=== PATIENT | male | born 1995 | race Hispanic/Latino ===

== ENCOUNTER 2020-03-31 20:23 | Emergency (ER) | payer OTHER ==
--- NOTE | 2020-04-01 00:18 | ER ---
Nurse's Notes [facility] Name: Saleem Fischer Age: 24 yrs Sex: Male : 1995 Arrival Date: 03/31/2020 Time: 20:27 Bed 15 Private MD: Diagnosis: Cough Presentation: 03/31 20:38 Chief complaint: Patient states: Dry cough started Sunday, fever on Sunday. Htemp ca1 101.9 Reports fatigue since yesterday. Took Motrin 1hr [employer]. Coronavirus screen: Surgical mask placed on patient. Patient moved to private room, placed in contact and droplet isolation with eye protection until further assessment. Patient reports a cough. Patient denies shortness of breath or difficulty breathing. Patient reports a measured and/or subjective temperature greater than 100.4F. Patient denies travel on a cruise ship or to a country the [facility] currently lists as an affected area. Patient denies contact with known and/or suspected case of COVID-19. Ebola Screen: Patient negative for fever greater than or equal to 101.5 degrees Fahrenheit, and additional compatible Ebola Virus Disease symptoms Patient denies exposure to infectious person. Patient denies travel to an Ebola-affected area in the 21 days before illness onset. No symptoms or risks identified at this time. Initial Sepsis Screen: Does the patient meet any 2 criteria? No. Patient's initial sepsis screen is negative. Does the patient have a suspected source of infection? No. Patient's initial sepsis screen is negative. Risk Assessment: Do you want to hurt yourself or someone else? Patient reports no desire to harm self or others. Onset of symptoms was March 31, 2020. 20:38 Method Of Arrival: Ambulatory ca1 20:38 Acuity: STEPHANIE 3 ca1 Triage Assessment: 23:50 General: Appears in no apparent distress. comfortable, Behavior is calm, cooperative. ls4 Pain: Denies pain. Neuro: No deficits noted. Cardiovascular: No deficits noted. Respiratory: No deficits noted. Respiratory effort is even, unlabored, Respiratory pattern is regular, Breath sounds are clear bilaterally. the patient reports symptoms have resolved. Historical: - Allergies: 20:42 No Known Allergies; ca1 - Home Meds: 20:42 phentermine oral oral [Active]; ca1 - PMHx: 20:42 None; ca1 - PSHx: 20:42 None; ca1 - Immunization history:: Adult Immunizations up to date. - Social history:: Smoking status: Reported history of juuling and/or vaping. Screenin:53 Abuse screen: Denies threats or abuse. Denies injuries from another. Nutritional ls4 screening: No deficits noted. Tuberculosis screening: No symptoms or risk factors identified. Fall Risk None identified. Assessment: 22:51 General: Appears in no apparent distress. comfortable. Pain: Denies pain. Neuro: No ls4 deficits noted. Level of Consciousness is awake, alert, obeys commands, Oriented to person, place, time. Cardiovascular: Denies chest pain, diaphoresis, lightheadedness, nausea, palpitations, shortness of breath, syncope, vomiting, Capillary refill < 3 seconds Patient's skin is warm and dry. Rhythm is regular. Respiratory: Airway is patent Respiratory effort is even, unlabored, Respiratory pattern is regular, Breath sounds are clear bilaterally. the patient reports symptoms have resolved. GI: No deficits noted. No signs and/or symptoms were reported involving the gastrointestinal system. Abdomen is non-distended, Bowel sounds present X 4 quads. Derm: Skin is pink, warm \T\ dry. Musculoskeletal: Circulation, motion, and sensation intact. Capillary refill < 3 seconds, Range of motion: intact in all extremities, Swelling absent. 23:22 Reassessment: Patient appears in no apparent distress at this time. Patient and/or ls4 family updated on plan of care and expected duration. Pain level reassessed. Patient is alert, oriented x 3, equal unlabored respirations, skin warm/dry/pink. PT STATES THAT HE IS A [employer] [employer] AND IS AFRAID TO GET COVID. PT HAS NO COUGH, SKIN WARM DRY PINK, RESPIRATIONS ARE REGULAR EVEN AND UNLABORED. Respiratory: Denies cough, shortness of breath labored breathing, pain with respiration, pain with cough, pain with movement, air hunger, PT STATES THAT HE COUGHED A FEW TIMES IN THE LAST FEW DAYS AND IS WORRIED HE HAS COVID. 04/01 12:39 Reassessment: LISA [id number] provided by [facility]. aa5 Vital Signs: 03/31 20:38 BP 139 / 94; Pulse 107; Resp 18 S; Temp 98.6(O); Pulse Ox 98% on R/A; Weight 79.83 kg ca1 (R); Height 5 ft. 3 in. (160.02 cm) (R); 23:30 BP 122 / 88; Pulse 76; Resp 16; Temp 98.4(O); Pulse Ox 99% on R/A; Pain 0/10; ls4 04/01 00:32 BP 129 / 87; Pulse 78; Resp 16; Pulse Ox 99% on R/A; Pain 0/10; ls4 03/31 20:38 Body Mass Index 31.18 (79.83 kg, 160.02 cm) ca1 ED Course: 03/31 20:27 Patient arrived in ED. cl3 20:40 Triage completed. ca1 20:42 Arm band placed on right wrist. ca1 22:25 Keli Gutierrez, RN is Primary Nurse. ls4 22:29 Cole España PA is PHCP. cp 22:29 Cole Hastings MD is Attending Physician. cp 22:54 Patient has correct armband on for positive identification. Bed in low position. Call ls4 light in reach. Side rails up X 1. Pulse ox on. NIBP on. Verbal reassurance given. 22:54 No provider procedures requiring assistance completed. Patient maintains SpO2 ls4 saturation greater than 95% on room air. 04/01 00:31 Throat Culture Sent. ls4 00:33 Patient did not have IV access during this emergency room visit. ls4 Administered Medications: No medications were administered Outcome: 00:18 Discharge ordered by . cp 00:32 Discharged to home ambulatory. ls4 00:32 Condition: good 00:32 Discharge instructions given to patient, Instructed on discharge instructions, follow up and referral plans. medication usage, Demonstrated understanding of instructions, follow-up care, medications, Prescriptions given X 1. 00:33 Patient left the ED. ls4 Addendum: 04/02/2020 17:17 Addendum: Other Pt notified of positive COVID results via telephone. h b Signatures: Nelia Fragoso, RN RN aa5 Cole España PA PA cp Baxter, Heather, RN RN hb Keli Gutierrez RN RN ls4 Antonia Oliver RN RN ca1 Sheree Matthews cl3
--- NOTE | 2020-04-01 00:19 | EDPHYS ---
Physician Documentation [facility] Name: Saleem Fischer Age: 24 yrs Sex: Male : 1995 Arrival Date: 03/31/2020 Time: 20:27 Bed 15 Private MD: ED Physician Cole Hastings HPI: 03/31 22:55 This 24 yrs old Male presents to ER via Ambulatory with complaints of Fever. cp 22:55 The patient reports fever, that was measured at 101.9 degrees Fahrenheit. cp 22:55 Onset: The symptoms/episode began/occurred 2 day(s) ago. cp 22:55 Associated signs and symptoms: Pertinent positives: cough, that is dry, sore throat, cp Pertinent negatives: diarrhea, runny nose, skin rash, shortness of breath, vomiting. Severity of symptoms: in the emergency department the symptoms have improved mildly. Historical: - Allergies: 20:42 No Known Allergies; ca1 - Home Meds: 20:42 phentermine oral oral [Active]; ca1 - PMHx: 20:42 None; ca1 - PSHx: 20:42 None; ca1 - Immunization history:: Adult Immunizations up to date. - Social history:: Smoking status: Reported history of juuling and/or vaping. ROS: 23:00 Constitutional: Negative for body aches, chills, fever, poor PO intake. cp 23:00 Eyes: Negative for injury, pain, redness, and discharge. cp 23:00 ENT: Positive for sore throat, Negative for drainage from ear(s), ear pain, difficulty swallowing, difficulty handling secretions. 23:00 Cardiovascular: Negative for chest pain. 23:00 Respiratory: Positive for cough, Negative for shortness of breath, wheezing. 23:00 Abdomen/GI: Negative for abdominal pain, nausea, vomiting, and diarrhea. 23:00 Skin: Negative for rash. 23:00 Neuro: Negative for headache. 23:00 All other systems are negative. Exam: 23:05 Constitutional: The patient appears in no acute distress, alert, awake, non-toxic, well cp developed, well nourished. 23:05 Head/Face: Normocephalic, atraumatic. cp 23:05 Eyes: Periorbital structures: appear normal, Conjunctiva: normal, no exudate, no injection, Lids and lashes: appear normal, bilaterally. 23:05 ENT: External ear(s): are unremarkable, Ear canal(s): are normal, clear, TM's: bulging, is not appreciated, bilaterally, dullness, bilaterally, erythema, is not appreciated, bilaterally, Nose: is normal, Mouth: Lips: moist, Oral mucosa: moist, Posterior pharynx: Airway: no evidence of obstruction, patent, Tonsils: are normal in appearance, erythema, is not appreciated, exudate, is not appreciated. 23:05 Neck: ROM/movement: is normal, is supple, no meningismus, no nuchal rigidity, Lymph nodes: no appreciated lymphadenopathy. 23:05 Chest/axilla: Inspection: normal, Palpation: is normal, no crepitus, no tenderness. 23:05 Cardiovascular: Rate: tachycardic, Rhythm: regular. 23:05 Respiratory: the patient does not display signs of respiratory distress, Respirations: normal, no use of accessory muscles, no retractions, labored breathing, is not present, Breath sounds: are clear throughout, no decreased breath sounds, no stridor, no wheezing. 23:05 Abdomen/GI: Exam negative for discomfort, distension, guarding, Inspection: abdomen appears normal. 23:05 Skin: no rash present. Vital Signs: 20:38 BP 139 / 94; Pulse 107; Resp 18 S; Temp 98.6(O); Pulse Ox 98% on R/A; Weight 79.83 kg ca1 (R); Height 5 ft. 3 in. (160.02 cm) (R); 23:30 BP 122 / 88; Pulse 76; Resp 16; Temp 98.4(O); Pulse Ox 99% on R/A; Pain 0/10; ls4 04/01 00:32 BP 129 / 87; Pulse 78; Resp 16; Pulse Ox 99% on R/A; Pain 0/10; ls4 03/31 20:38 Body Mass Index 31.18 (79.83 kg, 160.02 cm) ca1 MDM: 03/31 22:29 Patient medically screened. cp 04/01 00:17 Data reviewed: vital signs, nurses notes, lab test result(s), and as a result, I will cp discharge patient. 00:17 Differential diagnosis: viral Infection, bacterial infection, bronchitis, pneumonia cp meningitis. Counseling: I had a detailed discussion with the patient and/or guardian regarding: the historical points, exam findings, and any diagnostic results supporting the discharge/admit diagnosis, lab results, to return to the emergency department if symptoms worsen or persist or if there are any questions or concerns that arise at home. ED course: VSS. Patient appears non-toxic and no signs of respiratory distress. Will discharge to home for continued monitoring and patient instructed to self quarantine while awaiting results of COVID-19 testing. 03/31 22:53 Order name: COVID-19; Complete Time: 17:09 cp 03/31 22:53 Order name: Flu; Complete Time: 00:16 cp 04/01 00:16 Interpretation: Reviewed. cp 03/31 22:53 Order name: Strep; Complete Time: 00:16 cp 04/01 00:17 Interpretation: Reviewed. 03/31 22:53 Order name: Document PUI#; Complete Time: 23:22 cp 03/31 22:53 Order name: Droplet/Contact Precautions; Complete Time: 23:22 cp 04/01 00:17 Order name: Throat Culture EDW[facility] 03/31 22:53 Order name: Labs collected and sent; Complete Time: 23:22 cp 03/31 22:53 Order name: Notify Health Dept [phone]/ ; Complete Time: 12:19 cp 03/31 22:53 Order name: O2 Per Protocol; Complete Time: 23:22 cp Administered Medications: No medications were administered Disposition: 09:03 Co-signature as Attending Physician, Cole Hastings MD I agree with the assessment and sidney plan of care. Disposition: 04/01/20 00:18 Discharged to Home. Impression: Cough. - Condition is Stable. - Discharge Instructions: Cough, Adult. - Prescriptions for Tessalon Perles 100 mg Oral Capsule - take 1 capsule by ORAL route every 8 hours As needed; 15 capsule. - Medication Reconciliation Form, Thank You Letter, Antibiotic Education, Prescription Opioid Use form. - Follow up: Private Physician; When: 1 - 2 days; Reason: Worsening of condition. - Problem is new. - Symptoms have improved. - Notes: Self quarantine with family until results for COVID-19 are known. May take over the counter cough medicine Addendum: 04/02/2020 17:19 Addendum: Called patient, notified of + COVID-19 test \T\ 1719. . rn Signatures: Dispatcher [employer] Cole Petit MD MD cha Nieto, Roman, MD MD rn Page, Corey, Keli Stafford cp, RN RN ls4 Antonia Oliver RN RN ca1 Corrections: (The following items were deleted from the chart) 04/01 00:33 00:18 04/01/2020 00:18 Discharged to Home. Impression: Cough. Condition is Stable. ls4 Forms are Medication Reconciliation Form, Thank You Letter, Antibiotic Education, Prescription Opioid Use. Follow up: Private Physician; When: 1 - 2 days; Reason: Worsening of condition. Problem is new. Symptoms have improved. cp
[2020-04-01 00:50] VITALS: TEMP 98.4; O2SAT 99
[2020-04-01 00:52] VITALS: BP 129/87
== END 2020-04-01 00:33 | disposition home or self-care (01) ==
LOC: ER 20:23
DX: U07.1 COVID-19 (principal); R05 Cough
CPT/HCPCS: 87070; 87081; 87804 ×2; 99284; U0002; U0001

== ENCOUNTER 2021-06-03 09:12 | Emergency (ER) | payer OTHER ==
--- OUTSIDE RECORDS SUMMARY | 2021-06-03 09:15 | XMS REPORT | Continuity of Care Document ---
:1995 Author Organization [facility] t Address [address] [place] [address] Care Team Providers Name Role Phone Cooper RN, Mary Almanza Attending Clinician Unavailable Hector RN, A Attending Clinician Unavailable Only, Test Attending Clinician Unavailable Doctor Unassigned, Name Attending Clinician Unavailable Problems This patient has no known problems. Allergies, Adverse Reactions, Alerts This patient has no known allergies or adverse reactions. Medications This patient has no known medications. Procedures This patient has no known procedures. Encounters Start End Encounter Admission Attending Care Care Encounter Source Date/Time Date/Time Type Type Clinicians Facility Department ID 2020-04-25 2020-04-25 Telephone SAEID Gamboa [id number] 00:00:00 00:00:00 Mary RAMÍREZ [id number] [facility] [id number] 2020-04-16 2020-04-16 Telephone SAEID [id number] 00:00:00 00:00:00 Janene RAMÍREZ [id number] [facility] [id number] 2020-04-16 2020-04-16 Letter SAEID Young [id number] 00:00:00 00:00:00 (Out) Janene RAMÍREZ [id number] [facility] [id number] 2020-04-15 2020-04-15 Laboratory Only, [facility] [id number] 11:49:30 12:04:30 Only Test [place] [id number] [place] [id number] [place] [id number] 2020-04-15 2020-04-15 Orders Doctor SAEID [id number] 00:00:00 00:00:00 Only Unassigned, DESIREE [id number] [place] [id number] Results This patient has no known results.
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
--- NOTE | 2021-06-03 10:09 | RAD REPORT ---
EXAM DESCRIPTION: RAD - Wrist Left 3 View - 06/03/2021 10:01 am CLINICAL HISTORY: Left wrist pain status post injury FINDINGS: No fracture or dislocation is seen. If the patient continues to have symptoms to suggest an occult fracture then a followup plain film se mohsen in 7 days would be recommended
[2021-06-03 10:30] VITALS: BP 149/86; TEMP 98; O2SAT 98
[2021-06-03] MEDS ORDERED: ACETAMINOPHEN 325 MG TABLET ONE (10:33)
== END 2021-06-03 10:13 | disposition home or self-care (01) ==
LOC: ER 09:12
DX: S60.212A Contusion of left wrist, initial encounter (principal); V59.40XA Driver of pick-up truck or van injured in collision with unspecified motor vehicles in traffic accident, initial encounter
CPT/HCPCS: 99283

== ENCOUNTER 2022-12-26 11:50 | Emergency (ER) | payer OTHER ==
--- OUTSIDE RECORDS SUMMARY | 2022-12-26 11:53 | XMS REPORT | Continuity of Care Document ---
:1995 Author Organization [facility] t Address [address] [place] [address] Care Team Providers Name Role Phone UMU STEIN Primary Care Physician Unavailable RADIOLOGY Attending Clinician Unavailable Radiology Attending Clinician Unavailable Doctor Unassigned, [place] Attending Clinician Unavailable TY KENDRICK Attending Clinician Unavailable Cooper GREENWOOD, Mary Almanza Attending Clinician Unavailable Hector GREENWOOD, Janene Patterson Attending Clinician Unavailable Only, Adc Test Attending Clinician Unavailable Talya OSHEA, Yuri Attending Clinician UMU STEIN Admitting Clinician Unavailable Payers Payer Name Policy Type Policy Number Effective Date Expiration Date S amber [employer] [id number] 2020 00:00:00 [facility] [id number] 2012 2020 [facility] [employer] 00:00:00 00:00:00 Problems This patient has no known problems. Allergies, Adverse Reactions, Alerts Allergy Allergy Status Severity Reaction(s) Onset Inactive Treating Comm ents Source Name Type Date Date Clinician NO KNOWN Drug Active Univers ALLERGIE Class ity of S [facility] Social History Social Habit Start Date Stop Date Quantity Comments Source Exposure to Yes [facility] SARS-CoV-2 (event) Medica l Branch Sex Assigned At [birth year] [facility] 00:00:00 00:00:[address] [facility] Smoking Status Start Date Stop Date Source Unknown if ever smoked [facility] Medications This patient has no known medications. Immunizations Ordered Filled Immunization Date Status Comments Sourc e Immunization Name Name SARS-COV-2 COVID-19 2021-02-15 Completed Unive rsity of PFIZER VACCINE 00:00:00 [facility] SARS-COV-2 COVID-19 2021-02-15 Completed Unive rsity of PFIZER VACCINE 00:00:00 [facility] SARS-COV-2 COVID-19 2021-01-25 Completed Unive rsity of PFIZER VACCINE 00:00:00 [facility] SARS-COV-2 COVID-19 2021-01-25 Completed Unive rsity of PFIZER VACCINE 00:00:00 [facility] Procedures Procedure Date / Time Performed Performing Clinician Sourc e US UPPER LEG RIGHT 2021-09-08 18:04:01 Requisition, Paper [facility] ASSIGNMENT OF BENEFITS 2021-09-08 17:06:40 Doctor Unassigned, No [facility] ASSIGNMENT OF BENEFITS 2020-04-15 16:50:15 Doctor Unassigned, No [facility] Encounters Start End Encounter Admission Attending Care Care Encounter Source Date/Time Date/Time Type Type Clinicians Facility Department ID 2021-09-08 2021-09-08 Outpatient R RADIOLOGY [facility] [id number] Univers 11:34:07 23:59:00 ity of [facility] 2021-09-08 2021-09-08 Hospital Radiology [facility] [id number] Univers 11:34:07 23:59:00 Encounter [place] [id number] ity of [place] [id number] [facility] [id number] [facility] [address] 2021-09-08 2021-09-08 Orders Doctor SAEID [id number] Univers 00:00:00 00:00:00 Only Unassigned, DESIREE [id number] ity of [place] [facility] [id number] [place] [id number] [facility] [address] 2021-02-15 2021-02-15 Outpatient Brenton KENDRICK [facility] [id number] Univers 14:00:00 14:01:03 TY ity [facility] 2021-01-25 2021-01-25 Outpatient Brenton KENDRICK [facility] [id number] Univers 14:45:00 16:12:23 TY ity [facility] 2020-04-25 2020-04-25 Telephone SAEID Gamboa [id number] 00:00:00 00:00:00 Mary RAMÍREZ [id number] [place] [id number] 2020-04-25 2020-04-25 Telephone SAEID Gamboa [id number] Univers 00:00:00 00:00:00 Mary RAMÍREZ [id number] ity of [address]686 [place] as [id number] [address] 2020-04-24 2020-04-24 Outpatient Brenton KENDRICK [facility] [id number] [facility] 08:00:00 08:00:00 [facility] 2020-04-16 2020-04-16 Telephone SAEID Young [id number] 00:00:00 00:00:00 Janene JOLLYY [id number]686 [id number] 019 2020-04-16 2020-04-16 Letter SAEID Young [id number] 00:00:00 00:00:00 (Out) Janene JOLLYY [id number] [place] [id number] 2020-04-16 2020-04-16 Telephone SAEID [id number] Univers 00:00:00 00:00:00 Janene JOLLYY [id number] i ty of HOSPITAL [id number] [place] as [phone] [address] 2020-04-16 2020-04-16 Letter SAEID Young [id number] Univers 00:00:00 00:00:00 (Out) Janene JOLLYY [id number] i ty of [facility] [id number] [place] as [id number] [address] 2020-04-15 2020-04-15 Laboratory Only, Adc Test [facility] 1.2.840. [id number] Univers 11:49:30 12:04:30 Only Babin, Yuri Leyda 350.1.13.10 ity of [place] [id number] [facility] [id number] [facility] [address] 2020-04-15 2020-04-15 Laboratory Only, Adc [facility] 1.2.840.114 [id number] 11:49:30 12:04:30 Only Test [place] [id number] [place] 4.2.7.2.686 [place] [id number] 2020-04-15 2020-04-15 Outpatient R [facility] [id number] Univers 11:45:00 11:45:00 ity of [facility] 2020-04-15 2020-04-15 Orders Doctor SAEID [id number] [id number] Univers 00:00:00 00:00:00 Only Unassigned, DESIREE [id number] ity of [place] [facility] [id number] [facility] [id number] [facility] [address] 2020-04-15 2020-04-15 Orders Doctor SAEID [id number] 00:00:00 00:00:00 Only Unassigned, DESIREE [id number] [place] [facility] [id number] [id number] Results This patient has no known results.
[2022-12-26] MEDS ORDERED: LIDOCAINE 1% MPF 5 ML VIAL ONE (12:00)
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
[2022-12-26] MEDS ORDERED: TDAP (DIPHTH,PERTUSS(ACELL),TET VAC) 0.5 ML VIAL IMVAC ONE (12:16)
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
[2022-12-26 12:48] VITALS: TEMP 98.5
[2022-12-26 12:50] VITALS: BP 138/90; O2SAT 100
== END 2022-12-26 12:44 | disposition home or self-care (01) ==
LOC: ER 11:50
PROC: 09C1XZZ Extirpation of Matter from Left External Ear, External Approach (ICD-10-PCS; principal; 2022-12-26)
DX: T16.2XXA Foreign body in left ear, initial encounter (principal); S60.412A Abrasion of right middle finger, initial encounter; Y08.89XA Assault by other specified means, initial encounter
CPT/HCPCS: 96372; 99283; J2001